=== PATIENT | female | born 1995 | race American Indian/Alaskan Native ===

== ENCOUNTER 2018-12-02 20:34 | Inpatient (IN) | payer BC, OTHER ==
[2018-12-03] LABS: Hemoglobin 11.7 gm/dl (10.1-14.3); Mean Corpuscular HGB Conc 33 % (30-34); Mean Corpuscular Volume 84 fl (79-97); Platelet Count 195 K/mm3 (140-440); Red Blood Count 4.14 M/mm3 (3.65-5.03); Red Cell Distribution Width 14.9 % (13.2-15.2)
[2018-12-03 00:06] LABS: Bilirubin,Urine NEG (Negative); Blood,Urine NEG (Negative); Color,Urine Straw (Yellow); Mucus,Urine FEW /HPF; Protein,Urine <15 mg/dL mg/dL (Negative); Urobilinogen,Urine < 2.0 mg/dL (<2.0); WBC,Urine < 1.0 /HPF (0.0-6.0)
[2018-12-03 00:12] LABS: Alanine Aminotransferase 13 units/L (7-56)
[2018-12-03] MEDS ORDERED: PITOCin/NS 30 UNIT/500ML 30 UNITS/500 ML BAG IV SCH (05:00)
[2018-12-03] MEDS: LACTATED RINGERS 1,000 ML IV SCH ×2 (06:04→23:55)
--- NOTE | 2018-12-03 09:41 | History and Physical Report ---
History of Present Illness Date of examination: 12/03/18 Date of admission: 12/02/18 20:34 Chief complaint: Induction of Labor History of present illness: 23yo G 3 P 0 1 1 0 at 37 weeks 0 day who was sent from the clinic on 12/02/18 for IOL secondary to pre-eclampsia. She reports positive movements but denies UCs, VB, LOF, headaches, visual disturbances or RUQ pain. 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 care co-managed with [facility]. On Labetalol 200mg PO BID. Labs: B+, Antibody Screen neg, Pap smear normal, RI, VDRL NR, Urine Culture neg, HBsAg neg, HIV neg HSV-2 neg, CT/NG/Trich neg, MSAFP neg, Hgb A1c 5.6, Diabetes Screen 111, GBS neg, 24-hr Urine Protein on 11/07/18: 502. 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) Family/Genetic History: hypertension, other (hyperthyroidism) - Obstetrical History Expected Date of Delivery: 12/24/18 Actual Gestation: 37 Week(s) 0 Day(s) : 3 Para: 0 Hx # Term Pregnancies: 0 Number of Pregnancies: 1 Spontaneous Abortions: 0 Induced : 1 Number of Living Children: 0 #1 Gender: Female year: 2,[birth year] (02/20/2016) Method of Delivery: Vaginal Gestational age at delivery: 24 Complications: other (IUFD, Monsivais's Syndrome) Medications and Allergies Allergies Allergy/AdvReac Type Severity Reaction Status Date / Time No Known Allergies Allergy Verified 11/26/18 16:41 Home Medications Medication Instructions Recorded Confirmed Last Taken Type Labetalol [Normodyne TAB] 1 tab PO QDAY 11/28/18 12/02/18 12/02/18 18:00 History 200mg Multivitamin Tablet 1 tab PO QDAY 11/28/18 12/02/18 11/30/18 10:00 History Active Meds: Active Medications Lactated Ringer's (Lactated Ringers) 1,000 mls @ 125 mls/hr IV DIRECT ZUHAIR Last Admin: 12/03/18 06:04 Dose: 125 mls/hr Documented by: Oxytocin/Sodium Chloride (Pitocin/Ns 30 Unit/500ml) 30 units in 500 mls @ 4 mls/hr IV TITR ZUHAIR; Protocol Last Titration: 12/03/18 08:30 Dose: 10 mls/hr, 10 mls/hr Documented by: Review of Systems All systems: negative - Vital Signs Vital signs: Vital Signs Pulse BP 96 H 142/83 12/02/18 21:26 12/02/18 21:26 Temp Pulse Resp BP Pulse Ox 97.8 F 95 H 20 120/66 12/03/18 08:31 12/03/18 08:08 12/03/18 06:17 12/03/18 08:08 - Physical Exam Cardiovascular: Regular rate Lungs: Positive: Clear to auscultation Abdomen: Positive: normal appearance, soft Genitourinary (Female): Positive: normal external genitalia, normal perenium Vulva: both: normal Vagina: Positive: normal moisture Uterus: Positive: normal size, normal contour Extremities: Positive: tenderness (1+ BLE) - Obstetrical FHR: auscultation normal, category 1 FHR comments: baseline 140, moderate variability, 15x15 accels, no decels Uterine Contraction Monitor Mode: External Cervical Dilatation: 3 Cervical Effacement Percentage: 50 station: -3 Uterine Contraction Frequency (min): 2-4 Uterine Contraction Pattern: Regular Results Result Diagrams: 12/02/18 23:15 12/02/18 23:15 Abnormal lab results 12/02/18 Range/Units 23:15 Creatinine 0.5 L (0.7-1.2) mg/dL Lactate Dehydrogenase 438 H (91-180) units/L All other labs normal. Assessment and Plan - Patient Problems (1) 37 weeks gestation of Current Visit: Yes Status: Acute (2) Pre-eclampsia Current Visit: Yes Status: Acute Qualifiers: Trimester: third trimester Qualified Code(s): O14.93 - Unspecified pre- eclampsia, third trimester Plan to address problem: Asymptomatic BPs per protocol - stable PIH labs ordered - normal Continue Labetalol 200mg PO BID (3) Encounter for induction of labor Current Visit: Yes Status: Acute Plan to address problem: Admit to L&D with routine labor orders Pitocin initiated @ 6:17 am (currently at 10 mu/min): increase by 2 mu every 30 mins per protocol Anticipate vaginal delivery
[2018-12-03] MEDS ORDERED: BRETHINE IVP PRN (09:57)
[2018-12-03] MEDS ORDERED: SUBLIMAZE IV PRN (09:57)
[2018-12-03] MEDS ORDERED: XYLOCAINE 2% INFILTRATI ONE (09:57)
[2018-12-03] MEDS ORDERED: MINERAL OIL PO PRN (09:57)
[2018-12-03] MEDS ORDERED: BRETHINE SUB-Q PRN (09:57)
[2018-12-03] MEDS ORDERED: STADOL IV PRN (09:57)
[2018-12-03] MEDS ORDERED: PITOCin/NS 20 UNIT/1000ML DRIP 20 UNITS/1,000 ML BAG IV SCH (10:00)
[2018-12-03] MEDS ORDERED: MARCAINE 0.25% INFILTRATI ONE (13:12)
[2018-12-03] MEDS ORDERED: XYLOCAINE MPF 2% ONE (13:13)
[2018-12-03] MEDS ORDERED: fentaNYL-BUPIV 2 MCG/ML-0.125% 200 MCG/100 ML BAG EPIDURAL ONE (13:15)
[2018-12-03] MEDS ORDERED: NARCAN 2 MG/2 ML IV PRN (14:03)
--- NOTE | 2018-12-03 14:13 | Anesthesia Day of Surgery ---
Anesthesia Day of Surgery - Day of Surgery Patient Examined: Yes Patient H&P Reviewed: Yes Patient is NPO: Yes
--- NOTE | 2018-12-03 14:16 | Anesthesia Consultation ---
Anesthesia Consult and Med Hx Date of service: 12/03/18 - Airway Anesthetic Teeth Evaluation: Good ROM Head & Neck: Adequate Mental/Hyoid Distance: Adequate Mallampati Class: Class III Intubation Access Assessment: Probably Good - Pulmonary Exam CTA: Yes - Cardiac Exam Cardiac Exam: RRR - Pre-Operative Health Status ASA Pre-Surgery Classification: ASA3 Proposed Anesthetic Plan: Epidural - Pulmonary Hx Smoking: No Hx Asthma: No Hx Respiratory Symptoms: No SOB: No COPD: No Home Oxygen Therapy: No Hx Pneumonia: No Hx Sleep Apnea: No - Cardiovascular System Hx Hypertension: Yes Hx Coronary Artery Disease: No Hx Heart Attack/AMI: No Hx Angina: No Hx Percutaneous Transluminal Coronary Angioplasty (PTCA): No Hx Cardia Arrhythmia: No Hx Pacemaker: No Hx Internal Defibrillator: No Hx Valvular Heart Disease: No Hx Heart Murmur: No Hx Peripheral Vascular Disease: No - Central Nervous System Hx Neuromuscular Disorder: No Hx Seizures: No CVA: No Hx Back Pain: No Hx Psychiatric Problems: No - Gastrointestinal Hx Ulcer: No Hx Gastroesophageal Reflux Disease: Yes - Endocrine Hx Renal Disease: No Hx End Stage Renal Disease: No Hx Cirrhosis: No Hx Liver Disease: No Hx Insulin Dependent Diabetes: No (gestational) Hx Hypothyroidism: No Hx Hyperthyroidism: No - Hematic Hx Anemia: No Hx Sickle Cell Disease: No - Other Systems Hx Alcohol Use: Yes (social) Hx Substance Use: No Hx Cancer: No
[2018-12-03] MEDS ORDERED: fentaNYL-BUPIV 2 MCG/ML-0.125% 200 MCG/100 ML BAG EPIDURAL SCH (15:00)
--- NOTE | 2018-12-03 17:25 | Event Note ---
Date: 12/03/18 S: Pt resting in bed in semi-cortez's position. Family member and partner at bedside. Reports adequate pain relief post epidural. O: FHR: baseline 140, moderate variability, 15x15 accels, no decels Ctxs: q1-5mins; coupling present Oxytocin @ 14 mu/min Epidural anesthesia in place SVE 4/50/-3/I/Vtx BPs stable A: IUP @ 37w0d IOL for pre-eclampsia without severe features P: Continue current management Anticipate vaginal delivery
[2018-12-04] MEDS ORDERED: MARCAINE 0.25% INFILTRATI ONE ×3 (00:36→14:53)
--- NOTE | 2018-12-04 06:54 | Event Note ---
Date: 12/04/18 S: Pt in left lateral position. Partner at bedside sleeping. Epidural in place & reports no pain. C/O nausea & after drinking some water vomited and felt better. Denies headache, visual disturbances or RUQ pain. O: FHR: baseline 130, moderate variability, 15x15 accels, no decels Ctxs: q3-4mins Pitocin @ 4 mu/min BPs stable; on Labetalol 200mg PO BID SVE: 5/80/-1/VTX/BBOW A: IUP @ 37w1d IOL secondary to preeclampsia without severe features AROM for labor augmentation @ 06:34, clear fluid, moderate amount P: Continue routine labor orders Continue increasing Pitocin for protocol Continue antihypertensive therapy Anticipate vaginal delivery
[2018-12-04] MEDS: LACTATED RINGERS 1,000 ML IV SCH (08:06)
[2018-12-04] MEDS ORDERED: MARCAINE 0.5% INFILTRATI ONE (08:35)
[2018-12-04] MEDS ORDERED: TYLENOL PO PRN (10:24)
[2018-12-04] MEDS ORDERED: LANSINOH TP PRN (10:24)
[2018-12-04] MEDS ORDERED: PHENERGAN PO PRN (10:24)
[2018-12-04] MEDS ORDERED: TUCKS PAD TP PRN (10:24)
[2018-12-04] MEDS ORDERED: BENADRYL PO PRN (10:24)
[2018-12-04] MEDS ORDERED: ZOFRAN IV PRN (10:24)
[2018-12-04] MEDS ORDERED: MILK OF MAGNESIA PO PRN (10:24)
[2018-12-04] MEDS ORDERED: DULCOLAX PR PRN (10:24)
--- NOTE | 2018-12-04 10:30 | Procedure Note ---
OB Delivery Note - Delivery Date of Delivery: 12/04/18 (10:12) Surgeon: BRENDAN ROTHMAN (HOLLIS) Estimated blood loss: 100cc - Vaginal Delivery presentation: vertex Delivery position: OA Intrapartum events: none Delivery induction: oxytocin Delivery monitor: external FHT, external uterine Route of delivery: (10:12) Delivery placenta: spontaneous (10:16) Delivery cord: 3 umbilical vessels Episiotomy: none Delivery laceration: none Anesthesia: epidural Delivery comments: viable male , JOSE position over intact perineum at 10:12. Spontaneous lusty cry. Infant dried and placed [id number] on mothers abdomen. Delayed cord clamping then cut by FOB with my guidance. Spontaneous mejía delivery of intact placenta at 10:16. 3VC. discarded per hospital policy. FF@U-2. Bleeding small. No tears or lacerations. EBL 100ml. and mother left in stable condition in L&D. - Infant A at 1 minute: 8 at 5 minutes: 9 Gender: Male (6#1oz, 2771 grams, 18")
--- NOTE | 2018-12-04 10:35 | Post Anesthesia Evaluation ---
- Post Anesthesia Evaluation Patient Participated: Yes Airway Patent: Yes Stable Respiratory Function: Yes Nausea/Vomiting: No Temp > 96.8F: Yes Pain Manageable: Yes Adequeate Hydration: Yes Anesthesia Complications: No Block Receding Appropriately: Yes Patient on Ventilator: No
[2018-12-04] MEDS ORDERED: SODIUM CHLORIDE FLUSH SYRINGE 10 ML IV NR (11:00)
[2018-12-04] MEDS: IBUPROFEN PO SCH ×2 (19:02→23:20)
[2018-12-04 22:55] LABS: Hematocrit 30.6 % (30.3-42.9); Hemoglobin 10.1 gm/dl (10.1-14.3)
[2018-12-05] MEDS: IBUPROFEN PO SCH ×3 (05:39→18:33)
--- NOTE | 2018-12-05 10:11 | Progress Note ---
Assessment and Plan - Patient Problems (1) Status post normal vaginal delivery Current Visit: Yes Status: Acute Plan to address problem: PPD 1 - stable Continue routine PP orders Anticipate discharge in 24 hours (2) Pre-eclampsia Current Visit: Yes Status: Acute Qualifiers: Trimester: third trimester Qualified Code(s): O14.93 - Unspecified pre- eclampsia, third trimester Plan to address problem: Asymptomatic BPs per protocol - stable Continue Labetalol 200mg PO BID Subjective - Subjective Date of service: 12/05/18 Principal diagnosis: PPD #1; s/p Interval history: See H&P, Event Notes, and OB Delivery Procedure Note Patient reports: appetite normal, voiding normally, pain well controlled, flatus, bowel movement, ambulating normally, other (denies headache, visual disturbances or RUQ pain), no dizzy ambulation [place]: doing well, nursing well, bottle feeding Objective - Vital Signs Latest vital signs: Vital Signs Temp Pulse Resp BP BP Pulse Ox 12/05/18 08:33 98.0 F 89 18 119/72 99 12/05/18 00:00 98.8 F 83 20 117/61 12/04/18 20:05 98.6 F 90 20 127/77 12/04/18 15:20 98.5 F 119 H 18 98 12/04/18 12:40 97.7 F 98 H 20 108/55 12/04/18 11:11 75 142/75 Intake and Output 12/04/18 12/05/18 12/05/18 23:59 07:59 15:59 Intake Total 440 360 Output Total 300 Balance 140 360 Intake: Oral 440 120 Intake, Free Water 240 Output: Urine 300 Void 300 Other: Total, Intake Amount 240 120 Total, Output Amount 300 # Voids Indwelling Catheter 1 Void 1 1 - Exam Cardiovascular: Present: Regular rate Lungs: Present: Clear to auscultation Abdomen: Present: normal appearance, soft Vulva: both: normal Uterus: Present: normal, firm, fundal height at umbilicus Extremities: Present: edema (1+ BLE) Comments: small lochia
[2018-12-06] MEDS: IBUPROFEN PO SCH ×4 (00:19→16:59)
[2018-12-06] MEDS ORDERED: BOOSTRIX IM ONE (06:00)
--- NOTE | 2018-12-06 11:13 | Progress Note ---
Assessment and Plan A: day 2 S/P spontaneous vaginal delivery. Right leg pain. Anemia secondary to and blood loss. P: Ultrasound of right leg. Continue iron supplementation. Subjective - Subjective Date of service: 12/06/18 Principal diagnosis: PPD #2; s/p Interval history: day 2 S/P spontaneous vaginal delivery. Patient reports right leg pain with ambulation. Patient denies chest pain, shortness of breath, cough, headache, abdominal pain, heavy bleeding, or any other problems. Voiding without difficulty, passing gas, tolerating a regular diet without nausea or vomiting. Patient reports: appetite normal, voiding normally, flatus, no dizzy ambulation, no nauseated [place]: doing well Objective - Vital Signs Latest vital signs: Vital Signs Temp Pulse Resp BP BP Pulse Ox 12/06/18 07:23 98.2 F 76 18 136/81 97 12/06/18 02:00 98.6 F 79 18 129/77 12/05/18 16:40 97.5 F L 86 98 H 111/67 111/67 98 Intake and Output 12/05/18 12/06/18 12/06/18 23:59 07:59 15:59 Intake Total 240 480 120 Balance 240 480 120 Intake: Oral 480 120 Intake, Free Water 240 Other: Total, Intake Amount 480 120 # Voids Void 1 1 - Exam Cardiovascular: Present: Regular rate, Normal S1, Normal S2 Lungs: Present: Clear to auscultation Abdomen: Present: normal appearance, soft, normal bowel sounds. Absent: distention, tenderness, guarding, rigidity Uterus: Present: normal, firm, fundal height below umbilicus. Absent: bogginess, tenderness Extremities: Present: normal, edema (mild pedal edema bilaterally). Absent: tenderness
--- NOTE | 2018-12-06 14:11 | Vascular Lab Report ---
FINAL REPORT EXAM: VL VENOUS DUPLEX LE RT HISTORY: Right leg pain; TECHNIQUE: Grayscale and color and spectral Doppler ultrasound imaging of the right lower extremity was performed for the purposes of assessing for deep venous thrombosis. PRIORS: None. FINDINGS: No evidence of deep venous thrombosis is seen within the right common femoral vein through the emergency medicine medical director ior tibial and peroneal veins. Normal compression and color flow is seen throughout the venous system of the right lower extremity. Normal augmentation. Incidentally the left common femoral, proximal barrera perficial and deep femoral veins are patent. IMPRESSION: Negative for right lower extremity deep venous thrombosis.
[2018-12-07] MEDS: IBUPROFEN PO SCH ×2 (01:59→11:19)
--- NOTE | 2018-12-07 12:45 | Progress Note ---
Assessment and Plan A: day 3 S/P spontaneous vaginal delivery. Preeclampsia. Anemia. P: Repeat labs. Labetalol 200 mg po BID. Recheck BP. Continue iron supplementation. Subjective - Subjective Date of service: 12/07/18 Principal diagnosis: PPD #3; s/p Interval history: day 3 S/P spontaneous vaginal delivery. Preeclampsia. Anemia. BP elevated. Patient denies headache, chest pain, cough, visual disturbance, shortness of breath, abdominal pain, leg pain, heavy vaginal bleeding, or nausea and vomiting. She reports edema of hands and BLE. She states right leg pain has resolved. Venous doppler of RLE negative for DVT. Patient is voiding without difficulty. Ambulating well. Tolerating a regular diet; passing gas. Patient reports: appetite normal, voiding normally, pain well controlled, flatus, ambulating normally, no dizzy ambulation, no nauseated [place]: doing well Objective - Vital Signs Latest vital signs: Vital Signs Temp Pulse Resp BP BP Pulse Ox 12/07/18 08:44 98.2 F 71 20 143/89 98 12/07/18 01:50 98.6 F 78 18 123/70 12/06/18 16:24 97.0 F L 84 18 145/79 99 Intake and Output 12/06/18 12/07/18 12/07/18 23:59 07:59 15:59 Intake Total 720 240 360 Balance 720 240 360 Intake: Oral 120 360 Intake, Free Water 600 240 Other: Total, Intake Amount 120 360 # Voids Void 2 2 1 - Exam Cardiovascular: Present: Regular rate, Normal S1, Normal S2 Lungs: Present: Clear to auscultation Abdomen: Present: normal appearance, soft, normal bowel sounds. Absent: distention, tenderness, guarding, rigidity Uterus: Present: normal, firm, fundal height below umbilicus. Absent: bogginess, tenderness Extremities: Present: normal, edema (edema of bilateral lower extremities, R=L). Absent: tenderness
[2018-12-07 14:06] LABS: Alanine Aminotransferase 9 units/L (7-56); Albumin 3.4 g/dL (3.9-5); BUN/Creatinine Ratio 13; Blood Urea Nitrogen 10 mg/dL (7-17); Calcium 9.1 mg/dL (8.4-10.2); Hemolysis Index 1
[2018-12-07] MEDS: NORMODYNE PO SCH ×2 (14:17→23:54)
[2018-12-07] MEDS ORDERED: NACL 0.9% IV SCH (17:15)
[2018-12-07] MEDS ORDERED: GENTAMICIN IV SCH (17:15)
--- NOTE | 2018-12-07 17:32 | Event Note ---
Date: 12/07/18 Patient reports shaking chills starting about 15-20 minutes ago; she denies malaise, body aches, cough, congestion, shortness of breath, chest pain, abdominal pain, dysuria, vaginal discharge, or vaginal odor. Patient reports lower back pain beginning this afternoon, mild. She denies any severe pain. Orders put in for patient, including CBC, blood cultures, urine culture and urinalysis, lochia culture, flu swab, Ampicillin IV, Gentamicin IV, Tylenol. Consulted with Dr. Honeycutt re: this patient and informed him of symptoms, exam, and orders/interventions taken.
[2018-12-07] MEDS ORDERED: TYLENOL PO ONE (18:00)
[2018-12-07 18:22] LABS: Basophils % (Auto) 0.2 % (0.0-1.8); Eosinophils # (Auto) 0.2 K/mm3 (0.0-0.4); Eosinophils % (Auto) 2.2 % (0.0-4.3); Hematocrit 30.3 % (30.3-42.9); Hemoglobin 10.3 gm/dl (10.1-14.3); Lymphocytes # (Auto) 1.3 K/mm3 (1.2-5.4); Lymphocytes % (Auto) 14.2 % (13.4-35.0); Mean Corpuscular HGB Conc 34 % (30-34); Mean Corpuscular Volume 84 fl (79-97); Monocytes # (Auto) 0.2 K/mm3 (0.0-0.8); Monocytes % (Auto) 2.6 % (0.0-7.3); Platelet Count 161 K/mm3 (140-440); Red Cell Distribution Width 14.6 % (13.2-15.2)
[2018-12-07 20:36] LABS: Bacteria,Urine 2+ /HPF (Negative); Bilirubin,Urine NEG (Negative); Blood,Urine LG (Negative); Color,Urine Yellow (Yellow); Mucus,Urine FEW /HPF; Sperm,Urine FEW /HPF (NP); Urobilinogen,Urine < 2.0 mg/dL (<2.0)
[2018-12-07 20:37] LABS: WBC,Urine > 182.0 /HPF (0.0-6.0)
[2018-12-07] MEDS: GENTAMICIN/NS 120MG/100ML 120 MG/100 ML BAG IV SCH (21:13)
[2018-12-07] MEDS: NORCO 5/325 PO PRN (21:21)
[2018-12-07] MEDS: AMPICILLIN/NS 2 GM/100 ML 2 GM/100 ML BAG IV SCH (23:46)
[2018-12-08] MEDS: IBUPROFEN PO SCH ×4 (01:42→18:10)
[2018-12-08] MEDS: GENTAMICIN/NS 120MG/100ML 120 MG/100 ML BAG IV SCH (06:07)
[2018-12-08] MEDS: NORCO 5/325 PO PRN (06:07)
[2018-12-08] MEDS: AMPICILLIN/NS 2 GM/100 ML 2 GM/100 ML BAG IV SCH (06:55)
--- NOTE | 2018-12-08 09:43 | Progress Note ---
Assessment and Plan - Patient Problems (1) Status post normal vaginal delivery Current Visit: Yes Status: Acute Plan to address problem: PPD 1 - stable Continue routine PP orders Anticipate discharge pending cultures (2) Pre-eclampsia Current Visit: Yes Status: Acute Qualifiers: Trimester: third trimester Qualified Code(s): O14.93 - Unspecified pre- eclampsia, third trimester Plan to address problem: Asymptomatic BPs per protocol - stable Continue Labetalol 200mg PO BID Subjective - Subjective Date of service: 12/08/18 Principal diagnosis: PPD #4; s/p Interval history: See H&P, Event Notes, OB Delivery Procedure Note, and PP/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 PHYSICIAN Progress Notes Patient reports: appetite normal, voiding normally, pain well controlled, flatus, bowel movement, ambulating normally, other (reports mild chills at 5AM better than yesterday), no dizzy ambulation [place]: doing well, other (breast and bottle feeding) Objective - Vital Signs Latest vital signs: Vital Signs Temp Pulse Resp BP BP Pulse Ox 12/08/18 07:37 98.1 F 96 H 18 165/87 97 12/07/18 23:54 79 127/71 12/07/18 23:22 98.1 F 80 20 127/71 98 12/07/18 20:00 97.8 F 87 18 122/62 98 12/07/18 19:46 98.5 F 12/07/18 17:02 99.9 F H 12/07/18 15:50 97.3 F L 59 L 20 158/96 99 12/07/18 12:35 89 20 148/93 98 Intake and Output 12/07/18 12/08/18 12/08/18 23:59 07:59 15:59 Intake Total 220 580 Balance 220 580 Intake: IV 100 100 GARAMYCIN/NS 120MG/100ML 100 120 mg In 100 ml @ 194. 175 mls/hr IV Q8H ZUHAIR Rx# :[id number] POLYCILLIN/NS 2 GM/100 ML 100 2 gm In 100 ml @ 100 mls /hr IV Q6H ZUHAIR Rx#: [id number] Oral 120 480 Other: Total, Intake Amount 120 480 # Voids Void 1 - Exam Cardiovascular: Present: Regular rate Lungs: Present: Clear to auscultation, Normal air movement Abdomen: Present: normal appearance, soft Vulva: both: normal Uterus: Present: normal, firm, fundal height below umbilicus Extremities: Present: normal Comments: scant lochia - Labs Labs: Abnormal lab results 12/07/18 12/07/18 12/07/18 Range/Units 13:29 17:46 20:00 RBC 3.60 L (3.65-5.03) M/mm3 Seg Neutrophils % 80.8 H (40.0-70.0) % Glucose 103 H (65-100) mg/dL Albumin 3.4 L (3.9-5) g/dL Urine WBC (Auto) > 182.0 H (0.0-6.0) /HPF
[2018-12-08] MEDS: NORMODYNE PO SCH (10:20)
--- NOTE | 2018-12-08 17:46 | Discharge Summary ---
<ALIX DAVID - Last Filed: 12/08/18 17:39> Providers - Providers Date of Admission: 12/02/18 20:34 Date of discharge: 12/08/18 Attending physician: LALA MILLER Primary care physician: LALA MILLER Hospitalization Reason for admission: induction of labor (secondary to pre-eclampsia), IUP at term Delivery: Episiotomy: none Laceration: none Other procedures: none complications: none Discharge diagnosis: IUP at term delivered baby: male Hospital course: Uncomplicated but patient c/o chills yesterday. Negative influenza test. Urine, blood and lochia cultures collected. Results still pending. CBC on 12/07/18: 9.1. Vital signs stable. Last temp 98.1. Recommended patient awaits culture results but she insists on immediate discharge. I advised her to return to the ER if having signs of infection like fever, chills, malodorous lochia or having pelvic pain unrelieved by Ibuprofen, SOB, headaches, visual disturbances or RUQ pain. Condition at discharge: Stable Disposition: DC-01 TO HOME OR SELFCARE - Discharge Diagnoses (1) Status post normal vaginal delivery Status: Acute (2) Pre-eclampsia Status: Acute Qualifiers: Trimester: third trimester Qualified Code(s): O14.93 - Unspecified pre- eclampsia, third trimester Comment: Asymptomatic Continue Labetalol 200mg PO BID Plan - Provider Discharge Summary Activity: routine, no sex for 6 weeks, no heavy lifting 4 weeks, no strenuous exercise Diet: routine Instructions: routine Additional instructions: [] Smoking cessation referral if applicable(refer to patient education folder for contact #) [] Refer to [facility] Booklet Call your doctor immediately for: * Fever > 100.5 * Heavy vaginal bleeding ( >1 pad per hour) * Severe persistent headache * Shortness of breath * Reddened, hot, painful area to leg or breast * Drainage or odor from incision. * Keep incision clean and dry at all times and follow doctor's instructions regarding bathing/showering - Follow up plan Follow up: LALA MILLER MD [Primary Care Provider] - 3 Days (Follow up at [facility]EL[facility] in 3-4 days for BP check and to review cultures done prior to discharge.) Forms: [facility] Discharge Summary <LALA MILLER - Last Filed: 12/19/18 00:30> Providers - Providers Date of Admission: 12/02/18 20:34 Attending physician: LALA MILLER Primary care physician: LALA MILLER Hospitalization Hospital course: Laboratory Tests 12/02/18 12/02/18 12/02/18 23:15 23:15 23:15 WBC 10.5 RBC 4.14 Hgb 11.7 Hct 35.0 MCV 84 MCH 28 MCHC 33 RDW 14.9 Plt Count 195 Lymph % (Auto) [place] % (Auto) Eos % (Auto) Baso % (Auto) Lymph # [place] # Eos # Baso # Seg Neutrophils % Seg Neutrophils # Sodium Potassium Chloride Carbon Dioxide Anion Gap BUN Creatinine Estimated GFR BUN/Creatinine Ratio Glucose Uric Acid Calcium Total Bilirubin AST ALT Alkaline Phosphatase Lactate Dehydrogenase Total Protein Albumin Albumin/Globulin Ratio Urine Color Urine Turbidity Urine pH Ur Specific [place] Urine Protein Urine Glucose (UA) Urine Ketones Urine Blood Urine Nitrite Urine Bilirubin Urine Urobilinogen Ur Leukocyte Esterase Urine WBC (Auto) Urine RBC (Auto) U Epithel Cells (Auto) Urine Bacteria (Auto) Urine WBC Clumps Urine Mucus Urine Yeast (Budding) Urine Sperm RPR Nonreactive Influenza A (Rapid) Influenza B (Rapid) Blood Type B POSITIVE Antibody Screen Negative 12/02/18 12/02/18 12/04/18 23:15 23:51 22:27 WBC RBC Hgb 10.1 Hct 30.6 MCV MCH MCHC RDW Plt Count Lymph % (Auto) [place] % (Auto) Eos % (Auto) Baso % (Auto) Lymph # [place] # Eos # Baso # Seg Neutrophils % Seg Neutrophils # Sodium Potassium Chloride Carbon Dioxide Anion Gap BUN Creatinine 0.5 L Estimated GFR > 60 BUN/Creatinine Ratio Glucose Uric Acid 5.0 Calcium Total Bilirubin AST 35 ALT 13 Alkaline Phosphatase Lactate Dehydrogenase 438 H Total Protein Albumin Albumin/Globulin Ratio Urine Color Straw Urine Turbidity Clear Urine pH 6.0 Ur Specific [place] 1.009 Urine Protein <15 mg/dl Urine Glucose (UA) Neg Urine Ketones Neg Urine Blood Neg Urine Nitrite Neg Urine Bilirubin Neg Urine Urobilinogen < 2.0 Ur Leukocyte Esterase Neg Urine WBC (Auto) < 1.0 Urine RBC (Auto) 1.0 U Epithel Cells (Auto) 1.0 Urine Bacteria (Auto) Urine WBC Clumps Urine Mucus Few Urine Yeast (Budding) Urine Sperm RPR Influenza A (Rapid) Influenza B (Rapid) Blood Type Antibody Screen 12/07/18 12/07/18 12/07/18 13:29 13:29 17:46 WBC 9.1 RBC 3.60 L Hgb 10.3 Hct 30.3 MCV 84 MCH 29 MCHC 34 RDW 14.6 Plt Count 161 161 Lymph % (Auto) 14.2 [place] % (Auto) 2.6 Eos % (Auto) 2.2 Baso % (Auto) 0.2 Lymph # 1.3 [place] # 0.2 Eos # 0.2 Baso # 0.0 Seg Neutrophils % 80.8 H Seg Neutrophils # 7.3 Sodium 140 Potassium 3.9 Chloride 103.9 Carbon Dioxide 23 Anion Gap 17 BUN 10 Creatinine 0.8 D Estimated GFR > 60 BUN/Creatinine Ratio 13 Glucose 103 H Uric Acid Calcium 9.1 Total Bilirubin 0.30 AST 11 ALT 9 Alkaline Phosphatase 92 Lactate Dehydrogenase Total Protein 6.8 Albumin 3.4 L Albumin/Globulin Ratio 1.0 Urine Color Urine Turbidity Urine pH Ur Specific [place] Urine Protein Urine Glucose (UA) Urine Ketones Urine Blood Urine Nitrite Urine Bilirubin Urine Urobilinogen Ur Leukocyte Esterase Urine WBC (Auto) Urine RBC (Auto) U Epithel Cells (Auto) Urine Bacteria (Auto) Urine WBC Clumps Urine Mucus Urine Yeast (Budding) Urine Sperm RPR Influenza A (Rapid) Influenza B (Rapid) Blood Type Antibody Screen 12/07/18 12/07/18 20:00 20:00 WBC RBC Hgb Hct MCV MCH MCHC RDW Plt Count Lymph % (Auto) [place] % (Auto) Eos % (Auto) Baso % (Auto) Lymph # [place] # Eos # Baso # Seg Neutrophils % Seg Neutrophils # Sodium Potassium Chloride Carbon Dioxide Anion Gap BUN Creatinine Estimated GFR BUN/Creatinine Ratio Glucose Uric Acid Calcium Total Bilirubin AST ALT Alkaline Phosphatase Lactate Dehydrogenase Total Protein Albumin Albumin/Globulin Ratio Urine Color Yellow Urine Turbidity Cloudy Urine pH 5.0 Ur Specific [place] 1.013 Urine Protein 100 mg/dl Urine Glucose (UA) Neg Urine Ketones Neg Urine Blood Lg Urine Nitrite Neg Urine Bilirubin Neg Urine Urobilinogen < 2.0 Ur Leukocyte Esterase Lg Urine WBC (Auto) > 182.0 H Urine RBC (Auto) 37.0 U Epithel Cells (Auto) 1.0 Urine Bacteria (Auto) 2+ Urine WBC Clumps 3+ Urine Mucus Few Urine Yeast (Budding) 2+ Urine Sperm Few RPR Influenza A (Rapid) Negative Influenza B (Rapid) Negative Blood Type Antibody Screen - Discharge Diagnoses (1) Anemia due to acute blood loss Status: Acute Plan - Provider Discharge Summary Additional instructions: [] Smoking cessation referral if applicable(refer to patient education folder for contact #) [] Refer to [facility]'s [facility] Booklet Call your doctor immediately for: * Fever > 100.5 * Heavy vaginal bleeding ( >1 pad per hour) * Severe persistent headache * Shortness of breath * Reddened, hot, painful area to leg or breast * Drainage or odor from incision. * Keep incision clean and dry at all times and follow doctor's instructions regarding bathing/showering
[2018-12-08 17:59] VITALS: BP 141/81
== END 2018-12-08 18:45 | disposition home or self-care (01) | DRG 807 ==
LOC: LD 20:34 → OB 12-04 12:43
PROVIDERS: ADMIT Obstetrics & Gynecology; ATTEND Obstetrics & Gynecology
PROC: 10E0XZZ Delivery of Products of Conception, External Approach (ICD-10-PCS; principal; 2018-12-04)
PROC: 3E033VJ Introduction of Other Hormone into Peripheral Vein, Percutaneous Approach (ICD-10-PCS; 2018-12-04)
PROC: 3E0R3BZ Introduction of Anesthetic Agent into Spinal Canal, Percutaneous Approach (ICD-10-PCS; 2018-12-04)
PROC: 00HU33Z Insertion of Infusion Device into Spinal Canal, Percutaneous Approach (ICD-10-PCS; 2018-12-04)
PROC: 10907ZC Drainage of Amniotic Fluid, Therapeutic from Products of Conception, Via Natural or Artificial Opening (ICD-10-PCS; 2018-12-04)
DX: O11.4 Pre-existing hypertension with pre-eclampsia, complicating childbirth (principal); Z37.0 Single live birth; O99.02 Anemia complicating childbirth; D64.9 Anemia, unspecified; O99.214 Obesity complicating childbirth; E66.9 Obesity, unspecified; Z3A.37 37 weeks gestation of pregnancy; Z82.49 Family history of ischemic heart disease and other diseases of the circulatory system; Q96.9 Turner's syndrome, unspecified; Z79.899 Other long term (current) drug therapy
CPT/HCPCS: 36415; 80053; 81001; 82565; 83615; 84450; 84460; 84550; 85014; 85018; 85025; 85027; 85049; 86592; 86850; 86900; 86901; 87040; 87076; 87086; 87116; 87186; 87400; G0378; J0290; J1580; J2590; J7120

== ENCOUNTER 2021-11-08 09:52 | Emergency (ER) | payer BC, OTHER | END 2021-11-08 09:55 | disposition left against medical advice (07) | LOC: ED 09:52 | DX: I10 Essential (primary) hypertension (principal); Z53.21 Procedure and treatment not carried out due to patient leaving prior to being seen by health care provider ==